=== PATIENT | female | born 1945 | race Caucasian/White ===

== ENCOUNTER 2023-01-02 10:16 | Outpatient (CLI) | payer MEDICARE, OTHER | END 2023-01-02 10:17 | disposition home or self-care (01) | LOC: CSHMAMMO 10:16 | PROVIDERS: ATTEND Family Medicine | DX: Z12.31 Encounter for screening mammogram for malignant neoplasm of breast (principal); Z13.820 Encounter for screening for osteoporosis; M85.89 Other specified disorders of bone density and structure, multiple sites; N95.1 Menopausal and female climacteric states; Z91.89 Other specified personal risk factors, not elsewhere classified | CPT/HCPCS: 77063; 77067; 77080 ==

== ENCOUNTER 2024-01-08 09:00 | Outpatient (CLI) | payer MEDICARE, OTHER | END 2024-01-08 09:01 | disposition home or self-care (01) | LOC: CSHMAMMO 09:00 | PROVIDERS: ATTEND Family Medicine | DX: Z12.31 Encounter for screening mammogram for malignant neoplasm of breast (principal); Z91.89 Other specified personal risk factors, not elsewhere classified | CPT/HCPCS: 77063; 77067 ==

== ENCOUNTER 2025-01-14 11:27 | Outpatient (CLI) | payer MEDICARE, OTHER | END 2025-01-14 11:28 | disposition home or self-care (01) | LOC: CSHMAMMO 11:27 | PROVIDERS: ATTEND Family Medicine | DX: Z12.31 Encounter for screening mammogram for malignant neoplasm of breast (principal); Z80.3 Family history of malignant neoplasm of breast; Z91.89 Other specified personal risk factors, not elsewhere classified; Z85.51 Personal history of malignant neoplasm of bladder | CPT/HCPCS: 77063; 77067 ==